=== PATIENT | female | born 1975 | race Caucasian/White ===

== ENCOUNTER → 2016-11-13 | Outpatient (CLI) | payer OTHER ==
--- NOTE | 2016-11-13 11:35 | KCIC ---
Bilateral digital screening mammograms with CAD: HISTORY Routine screening COMPARISON Comparison is made to previous examinations dated 09/27/2015 and 10/27/2013. FINDINGS Breast density category C. The skin and nipples show no abnormalities. No abnormal lymph nodes are seen in the axilla. The breast parenchyma shows heterogeneous density. There is some nodularity suggested posteriorly just above the nipple level in the left breast on oblique view. This may represent superimposed tissues but recommend further evaluation with coned compression views and ultrasound if the density persists with the additional views. There are no dominant masses, suspicious calcifications or architectural distortions. IMPRESSION Small focus of nodularity suggested posteriorly in the left breast on oblique view. Recommend further evaluation with additional views and ultrasound. This study was interpreted with the benefit of Computerized Aided Detection (CAD). Mammography is not 100% sensitive in detecting breast cancer. Therefore, a self breast exam and a clinical breast exam are very important. A negative mammogram does not negate a clinically suspicious finding and should not result in a delay in biopsying a clinically suspicious abnormality. BI-RADS category 0: Incomplete. Additional imaging is recommended. This patient's information has been entered into a reminder system for the patient to be notified with the results of this examination and a target date for her next mammograms. Electronically signed by: Sanjuanita Neri MD (Nov 13, 2016 11:33:34)
== END | disposition home or self-care (01) ==
LOC: KCIC MAMMO 10:18
PROVIDERS: ATTEND Obstetrics & Gynecology
DX: Z12.31 Encounter for screening mammogram for malignant neoplasm of breast (principal)
CPT/HCPCS: G0202; 77067

== ENCOUNTER → 2016-11-17 | Outpatient (CLI) | payer OTHER ==
--- NOTE | 2016-11-17 19:59 | KCIC ---
Diagnostic digital mammograms left breast: Reason for examination: Nodular density on screening exam. Comparison is made to mammographic study dated 11/13/2016. Cone compression views were obtained in MLO and exaggerated CC projections. A nodule persists at the 230 C position. This is fairly well-circumscribed and probably represents a intramammary lymph node. Further evaluation with ultrasound will follow. Impression: Nodule consistent with a probable lymph node at the 230 C position. Ultrasound to follow. BI-RADS category 0: Incomplete. Ultrasound to follow. Left breast ultrasound: Ultrasound examination was performed in the area of mammographic concern. In the 2:30 position 8 centimeters from the nipple, there is a hypoechoic circumscribed rib lesion with a echogenic center consistent with a intramammary lymph node measuring 9.2 millimeters in greatest dimension. This would appear to correspond with the area of mammographic concern. No other cystic or solid lesions are seen. No abnormal lymph nodes are seen in the axilla. Impression: Small lymph node appears to correspond to the area mammographic concern. Recommend 6 month followup with mammograms and ultrasound. BI-RADS category 3: Probably benign. This patient's information has been entered into a reminder system for the patient to be notified with the results of this examination and a target date for her next mammograms. Electronically signed by: Sanjuanita Neri MD (Nov 17, 2016 19:57:39)
== END | disposition home or self-care (01) ==
LOC: KCIC MAMMO 12:46
PROVIDERS: ATTEND Obstetrics & Gynecology
DX: R92.8 Other abnormal and inconclusive findings on diagnostic imaging of breast (principal); N63 Unspecified lump in breast
CPT/HCPCS: 76641; G0206; 77065

== ENCOUNTER → 2017-05-28 | Outpatient (CLI) | payer OTHER ==
--- NOTE | 2017-05-28 10:38 | KCIC ---
Left Unilateral Mammogram, with CAD: History: 6 month follow-up asymmetric tissue density left breast. Technique: Digital routine views were obtained of the left breast with CAD - computer aided detection. Previous: November 13, 2016 and October 27, 2013. Findings: Breast Tissue Density C : The breast tissue is heterogeneously dense. Scattered fibroglandular elements may obscure underlying pathology. There are no suspicious masses, microcalcifications or areas of architectural distortion. Impression: Negative mammogram. BI-RADS Category 1: Negative. Normal interval followup.. The patient will receive a letter with the results in the mail. The results were given to the patient in person. Electronically signed by: Glynn Marte III, MD (05/28/2017 10:34 AM) [id number]
--- NOTE | 2017-05-28 10:40 | KCIC ---
Left breast. History asymmetric tissue density on mammogram Sonographic examination of the left axilla was performed and multiple static images were obtained. COMPARISON: November 17, 2016 There are normal-appearing lymph nodes in the left axilla. There is no suspicious findings. IMPRESSION: No suspicious findings. Recommendation patient return to routine screening mammography with a bilateral mammogram in October. Results were given to the patient in person. BI-RADS Category 1: Negative. Electronically signed by: Glynn Marte III, MD (05/28/2017 10:36 AM) [id number]
== END | disposition home or self-care (01) ==
LOC: KCIC MAMMO 09:39
PROVIDERS: ATTEND Obstetrics & Gynecology
DX: R92.8 Other abnormal and inconclusive findings on diagnostic imaging of breast (principal)
CPT/HCPCS: 76641; G0206; 77065

== ENCOUNTER → 2018-01-28 | Outpatient (CLI) | payer OTHER | END | disposition home or self-care (01) | LOC: KCIC MAMMO 10:49 | DX: Z12.31 Encounter for screening mammogram for malignant neoplasm of breast (principal) | CPT/HCPCS: 77063; 77067 ==

== ENCOUNTER → 2019-07-21 | Outpatient (CLI) | payer OTHER ==
--- NOTE | 2019-07-21 15:54 | KCIC ---
Bilateral digital screening mammograms with 3-D tomosynthesis: Reason for examination: Routine screening. Comparison is made to previous studies dated 01/28/2018 and 11/13/2016. Bilateral mammograms in CC and oblique projections were obtained with 2-D imaging and 3-D tomosynthesis imaging on a Siemens Inspiration unit and reviewed on the workstation. Interpretation was made with the benefit of CAD. The skin and nipples show no abnormalities. No abnormal axillary lymph nodes are seen. The breast parenchyma is heterogeneously dense. (Breast density: Category C.) There are no dominant masses, suspicious calcifications or architectural distortion. Benign calcifications are present. Impression: No evidence of malignancy. Recommend routine screening. Your patient's mammogram demonstrates that she has dense breast tissue (breast density category C or D), which could hide abnormalities, and if she has other risk factors for breast cancer that have been identified, she might benefit from supplemental screening tests that may be suggested by you as her ordering physician. Dense breast tissue, in and of itself, is a relatively common condition. Therefore, this information is not provided to cause undue concern, but rather to raise your awareness and to promote discussion with your patient regarding the presence of other risk factors, in addition to dense breast tissue. Your patient's mammography results will be sent to her. BI-RAD Category 2: Benign. "Our facility is accredited by the [employer] Mammography Program." This patient's information has been entered into a reminder system for the patient to be notified with the results of her examination and a target date for the next mammogram. Electronically signed by: Jeri Neri MD (07/21/2019 3:51 PM) [facility]
== END | disposition home or self-care (01) ==
LOC: KCIC MAMMO 09:51
PROVIDERS: ATTEND Obstetrics & Gynecology
DX: Z12.31 Encounter for screening mammogram for malignant neoplasm of breast (principal); N64.89 Other specified disorders of breast
CPT/HCPCS: 77063; 77067

== ENCOUNTER → 2021-06-10 | Outpatient (CLI) | payer OTHER ==
--- NOTE | 2021-06-10 14:21 | KCIC ---
Bilateral digital screening mammograms with 3-D tomosynthesis: Reason for examination: Routine screening. Comparison is made to previous studies dated back to 10/27/2013. Bilateral mammograms in CC and oblique projections were obtained with 2-D imaging and 3-D tomosynthes is imaging on a Siemens Inspiration unit and reviewed on the workstation. Interpretation was made wit h the benefit of CAD. The skin and nipples show no abnormalities. No abnormal axillary lymph nodes are seen. The breast par enchyma is heterogeneously dense. (Breast density: Category C.) There are no dominant masses, suspici ous calcifications or architectural distortion. Benign calcifications are present. Impression: No evidence of malignancy. Recommend routine screening. Your patient's mammogram demonstrates that she has dense breast tissue (breast density category C or D), which could hide abnormalities, and if she has other risk factors for breast cancer that have bee n identified, she might benefit from supplemental screening tests that may be suggested by you as her ordering physician. Dense breast tissue, in and of itself, is a relatively common condition. Therefo re, this information is not provided to cause undue concern, but rather to raise your awareness and t o promote discussion with your patient regarding the presence of other risk factors, in addition to d ense breast tissue. Your patient's mammography results will be sent to her. BI-RAD Category 2: Benign. "Our facility is accredited by the [employer] Mammography Program." This patient's information has been entered into a reminder system for the patient to be notified wit h the results of her examination and a target date for the next mammogram. Electronically signed by: Jeri Neri MD (06/10/2021 2:19 PM) [id number]
== END ==
LOC: KCIC MAMMO 09:42
PROVIDERS: ATTEND Obstetrics & Gynecology
DX: Z12.31 Encounter for screening mammogram for malignant neoplasm of breast (principal)
CPT/HCPCS: 77063; 77067